=== PATIENT | female | born 1990 | race Caucasian/White ===

== ENCOUNTER 2021-10-06 21:00 | Day surgery (SDC) | payer BC ==
[2021-10-06 21:24] VITALS: BMI 34.1
[2021-10-06] MEDS ORDERED: hydrALAZINE 20 MG/ML VIAL SLOW IVP PRN (22:16)
== END 2021-10-07 07:18 | disposition home or self-care (01) ==
LOC: CSHLD/OP 21:00
PROVIDERS: ATTEND Obstetrics & Gynecology
DX: O47.03 False labor before 37 completed weeks of gestation, third trimester (principal); O24.419 Gestational diabetes mellitus in pregnancy, unspecified control; O99.283 Endocrine, nutritional and metabolic diseases complicating pregnancy, third trimester; O99.013 Anemia complicating pregnancy, third trimester; O99.343 Other mental disorders complicating pregnancy, third trimester; E28.2 Polycystic ovarian syndrome; F41.9 Anxiety disorder, unspecified; F32.A Depression, unspecified; D56.0 Alpha thalassemia; Z3A.36 36 weeks gestation of pregnancy; Z79.84 Long term (current) use of oral hypoglycemic drugs; Z79.899 Other long term (current) drug therapy; Z88.5 Allergy status to narcotic agent; Z91.048 Other nonmedicinal substance allergy status
CPT/HCPCS: 96360; 96361; 99283

== ENCOUNTER 2021-10-12 10:59 | Day surgery (SDC) | payer BC ==
[2021-10-12 11:27] VITALS: BMI 34.1
[2021-10-12] MEDS ORDERED: hydrOXYzine Pamoate 25 mg Capsule PO SCH (14:00)
[2021-10-12 14:38] LABS: Bilirubin Neg (Negative); Blood, Urine 150 (Negative); Clarity Clear (Clear); Glucose, Urine (Dipstick) Normal (Negative); Ketone, Urine 5 mg/dL (Negative); Leukocyte Negative (Negative); Nitrite Negative (Negative); Protein, Urine (Dipstick) Negative (Neg-Trace); Specific Gravity, Urine 1.005 (1.002-1.036); Urobilinogen Normal mg/dL (Less than 2)
[2021-10-12] MEDS ORDERED: Acetaminophen 500 MG TAB PO SCH (14:45)
[2021-10-12 14:56] LABS: Urine Culture Reflex No No
[2021-10-12 15:40] LABS: Bacteria/HPF Rare-Few HPF (None Seen); RBC/HPF 0-3 HPF (0-3); Squamous Epithelial 0-3 HPF (0-3); Transitional Epithelial 0-3 HPF (None Seen); WBC/HPF None Seen HPF (0-3)
== END 2021-10-12 16:05 | disposition home or self-care (01) ==
LOC: CSHLD/OP 10:59
PROVIDERS: ATTEND Obstetrics & Gynecology
DX: O47.03 False labor before 37 completed weeks of gestation, third trimester (principal); Z3A.36 36 weeks gestation of pregnancy; Z79.84 Long term (current) use of oral hypoglycemic drugs; Z79.899 Other long term (current) drug therapy; Z88.5 Allergy status to narcotic agent; Z91.048 Other nonmedicinal substance allergy status
CPT/HCPCS: 81001; 99283

== ENCOUNTER 2021-10-17 18:46 | Inpatient (IN) | payer BC ==
[~2021-10-17 18:46] MED LIST: Bupivacaine 0.25% HCL 30 ML VIAL ONE
[2021-10-17 19:30] VITALS: BMI 33.9
[2021-10-17] MEDS ORDERED: Promethazine HCl 25 MG/ML VIAL IM PRN ×2 (20:12→20:54)
[2021-10-17] MEDS ORDERED: Ondansetron PF 4 MG/2 ML Vial IVP PRN ×3 (20:12→21:12)
[2021-10-17] MEDS ORDERED: Lidocaine 1% (PF) 30 ML VIAL SC PRN (20:12)
[2021-10-17] MEDS ORDERED: Ibuprofen 800 MG TAB PO PRN (20:12)
[2021-10-17] MEDS ORDERED: hydrALAZINE 20 MG/ML VIAL SLOW IVP PRN ×2 (20:12→21:12)
[2021-10-17] MEDS ORDERED: Lactated Ringer's 1,000 ML IV SCH ×2 (20:15)
[2021-10-17] MEDS ORDERED: NS w/ Oxytocin 30 units 500 ML IV SCH ×2 (20:15→21:15)
[2021-10-17 20:25] LABS: Hemoglobin 12.7 g/dL (12.0-15.5); Mean Corpuscular Hemoglobin 25.7 pg (27.0-33.0); Mean Corpuscular Volume 80.4 fl (81.6-98.3); Mean Platelet Volume 11.8 fl (7.4-10.4); Platelet Count 234 10x3/uL (150-450); RBC Distribution Width 14.8 % (11.5-14.5); Red Blood Cell (RBC) Count 4.94 10x6/uL (3.90-5.03); White Blood Cell (WBC) Count 12.7 10x3/uL (3.5-10.5)
[2021-10-17] MEDS ORDERED: Fentanyl 2 mcg/Bup 0.1% Cadd 100 ML ONE (20:31)
[2021-10-17 20:36] LABS: Glucose 83 mg/dL (70-105)
[2021-10-17] MEDS ORDERED: diphenhydrAMINE 50 MG/ML VIAL IVP PRN (20:54)
[2021-10-17] MEDS ORDERED: Lactated Ringer's 500 ML IV PRN (20:54)
[2021-10-17] MEDS ORDERED: ePHEDrine Sulfate 50 MG/10 ML VIAL SLOW IVP PRN (20:54)
[2021-10-17] MEDS ORDERED: Hydrocerin (Eucerin) Cream 120 gm Jar TOP PRN (20:54)
[2021-10-17] MEDS ORDERED: Acetaminophen 325 MG TAB PO PRN ×2 (20:54→21:14)
[2021-10-17] MEDS ORDERED: Naloxone HCl 0.4 mg/ml Vial IVP PRN ×2 (20:54)
[2021-10-17] MEDS ORDERED: Fentanyl 2 mcg/Bupivacaine 0.1% Cassette 100 ML EPIDURAL SCH (21:00)
[2021-10-17] MEDS ORDERED: Communication Order-Pharmacy FS SCH (21:00)
[2021-10-17 21:01] LABS: Hep B Surf Ag Non-Reactive S/CO (NonReactive); Syphilis Antibody Nonreactive (Nonreactive); Syphilis Antibody Index 0.07 S/CO (<1.00 Non-Reactive)
[2021-10-17 21:03] LABS: HBSAg Index 0.17 S/CO (0-0.99)
[2021-10-17] MEDS ORDERED: traMADol HCl 50 MG TAB PO PRN (21:12)
[2021-10-17] MEDS ORDERED: Benzocaine-Menthol 82.5 ML CAN TOP PRN (21:12)
[2021-10-17] MEDS ORDERED: diphenhydrAMINE 25 MG CAP PO PRN (21:12)
[2021-10-17] MEDS ORDERED: Preparation H Ointment 28 GM TUBE PR PRN (21:12)
[2021-10-17] MEDS ORDERED: Zolpidem Tartrate 5 MG TAB PO PRN (21:12)
[2021-10-17] MEDS ORDERED: Bisacodyl 10 MG SUPP PR PRN (21:12)
[2021-10-17] MEDS ORDERED: Misoprostol 200 MCG TAB VAG PRN (21:12)
[2021-10-17] MEDS ORDERED: Milk Of Magnesia 30 ML UDCUP PO PRN (21:12)
[2021-10-17] MEDS ORDERED: Lanolin Ointment 7 GM TUBE TOP PRN (21:12)
[2021-10-17] MEDS ORDERED: Boostrix 0.5 ML (Tdap) VIAL IM ONE (21:12)
[2021-10-17] MEDS ORDERED: Witch Hazel-Glycerin 1 EACH JAR TOP PRN (21:14)
[2021-10-18] MEDS: Ibuprofen 800 MG TAB PO SCH ×4 (01:53→22:51)
[2021-10-18 05:09] LABS: Hemoglobin 11.6 g/dL (12.0-15.5); Mean Corpuscular HGB CONC 33.3 g/dL (32.0-36.0); Mean Corpuscular Hemoglobin 26.2 pg (27.0-33.0); Mean Corpuscular Volume 78.7 fl (81.6-98.3); Mean Platelet Volume 10.9 fl (7.4-10.4); Platelet Count 167 10x3/uL (150-450); RBC Distribution Width 14.6 % (11.5-14.5); Red Blood Cell (RBC) Count 4.42 10x6/uL (3.90-5.03); White Blood Cell (WBC) Count 14.3 10x3/uL (3.5-10.5)
[2021-10-18] MEDS: Docusate Calcium (SURFAK) 240 MG CAP PO SCH ×2 (08:16→22:51)
[2021-10-18] MEDS: Ferrous Sulfate 325 MG TAB PO SCH ×2 (08:16→17:05)
[2021-10-18] MEDS: Prenatal Vitamin 1 TAB PO SCH (08:16)
[2021-10-19] MEDS: Ibuprofen 800 MG TAB PO SCH (06:08)
[2021-10-19] MEDS: Ferrous Sulfate 325 MG TAB PO SCH (07:13)
[2021-10-19 07:40] VITALS: BP 115/77; TEMP 97.8
[2021-10-19] MEDS: Prenatal Vitamin 1 TAB PO SCH (08:16)
[2021-10-19] MEDS: Docusate Calcium (SURFAK) 240 MG CAP PO SCH (08:16)
== END 2021-10-19 11:30 | disposition home or self-care (01) | DRG 807 ==
LOC: CSHLD/OP 18:46 → CSHLD 20:27 → CSHPP 10-18 00:06
PROVIDERS: ADMIT Obstetrics & Gynecology; ATTEND Obstetrics & Gynecology
PROC: 10907ZC Drainage of Amniotic Fluid, Therapeutic from Products of Conception, Via Natural or Artificial Opening (ICD-10-PCS; 2021-10-16)
PROC: 10E0XZZ Delivery of Products of Conception, External Approach (ICD-10-PCS; principal; 2021-10-17)
PROC: 0HQ9XZZ Repair Perineum Skin, External Approach (ICD-10-PCS; 2021-10-17)
DX: O24.429 Gestational diabetes mellitus in childbirth, unspecified control (principal); Z37.0 Single live birth; Z3A.37 37 weeks gestation of pregnancy; O70.0 First degree perineal laceration during delivery
CPT/HCPCS: 36415; 51702; 82947; 85027; 86780; 86850; 86900; 86901; 87340; J2001; J2590

== ENCOUNTER 2023-11-13 12:08 | Outpatient (CLI) | payer BC | END 2023-11-13 12:09 | disposition home or self-care (01) | LOC: CSHMAMMO 12:08 | PROVIDERS: ATTEND Obstetrics & Gynecology | DX: Z12.31 Encounter for screening mammogram for malignant neoplasm of breast (principal); Z80.3 Family history of malignant neoplasm of breast | CPT/HCPCS: 77063; 77067 ==

== ENCOUNTER 2025-10-16 09:06 | Outpatient (CLI) | payer BC | END 2025-10-16 09:07 | disposition home or self-care (01) | LOC: CSHMAMMO 09:06 | PROVIDERS: ATTEND Nurse Practitioner Family | DX: N63.20 Unspecified lump in the left breast, unspecified quadrant (principal); R92.333 Mammographic heterogeneous density, bilateral breasts; Z80.3 Family history of malignant neoplasm of breast | CPT/HCPCS: 77066; G0279 ==